=== PATIENT | male | born 1960 | race African-American/Black ===

== ENCOUNTER 2021-09-07 16:38 | Emergency (ER) | payer OTHER ==
[~2021-09-07] VITALS: Ht 188 cm; Wt 91.0 kg
[2021-09-07 16:41] VITALS: BP 152/98
[2021-09-07] MEDS ORDERED: ACETAMINOPHEN 325MG TABLET PO ONE (17:30)
[2021-09-08] MEDS ORDERED: IBUP-2028 MT (03:57)
== END 2021-09-07 18:19 | disposition left against medical advice (07) ==
LOC: ER 16:38
DX: R51.9 Headache, unspecified (principal); R07.89 Other chest pain; F20.9 Schizophrenia, unspecified; Y08.89XA Assault by other specified means, initial encounter; Y93.89 Activity, other specified; Y92.9 Unspecified place or not applicable
CPT/HCPCS: 99283

== ENCOUNTER 2021-09-07 18:56 | Emergency (ER) | payer OTHER ==
[~2021-09-07] VITALS: Ht 177.8 cm; Wt 88.0 kg
[2021-09-07 20:41] LABS: BASOPHILS % 0.8 % (0.0-2.0); EOSINOPHILS % 1.8 % (0.0-5.0); HEMATOCRIT. 42.8 % (42.0-52.0); HEMOGLOBIN. 13.8 g/dL (14.0-18.0); LYMPHOCYTES % 20.9 % (20.0-50.0); MEAN CORPUSCULAR HEMOGLOBIN 27.3 pg (28.0-32.0); MEAN CORPUSCULAR VOLUME 84.6 fL (80.0-94.0); MEAN PLATELET VOLUME 9.7 fl (7.4-10.4); MONOCYTES % 9.6 % (2.0-8.0); NEUTROPHILS % 66.9 % (40.0-76.0); PLATELET 175 x1000/uL (130-400); RED BLOOD CELL COUNT 5.06 mill/uL (4.7-6.1); RED CELL DISTRIBUTION WIDTH 14.5 % (11.6-14.6)
[2021-09-07 21:04] LABS: CHLORIDE 111 mEq/L (98-107)
[2021-09-07 21:11] LABS: ETHANOL BLOOD 57 mg/dL
[2021-09-08] MEDS ORDERED: ACETAMINOPHEN 325MG TABLET PO STA (01:07)
[2021-09-08] MEDS ORDERED: ACETAMINOPHEN 325MG TABLET PO NR (03:00)
[2021-09-08] MEDS ORDERED: IBUP-2028 MT (03:57)
[2021-09-08 04:00] VITALS: BP 148/92
== END 2021-09-08 04:20 | disposition home or self-care (01) ==
LOC: ER 18:56
DX: S09.8XXA Other specified injuries of head, initial encounter (principal); S29.8XXA Other specified injuries of thorax, initial encounter; Y08.89XA Assault by other specified means, initial encounter; Y93.89 Activity, other specified; Y92.89 Other specified places as the place of occurrence of the external cause; Y99.8 Other external cause status; F20.9 Schizophrenia, unspecified
CPT/HCPCS: 36415; 80053; 80307; 80320; 80329; 85025; 93005; 99285; G0480